=== PATIENT | male | born 1965 | race Caucasian/White ===

== ENCOUNTER 2019-08-18 08:23 | Inpatient (IN) | payer OTHER ==
[~2019-08-18] VITALS: Ht 160 cm; Wt 97.5 kg
[2019-08-18 09:29] LABS: BASOPHIL % 0.6 % (0-2); PLATELET COUNT 199 x10^3mcL (130-400); RED CELL DISTRIBUTION WIDTH 13.6 % (11.5-14.5)
[2019-08-18 09:54] LABS: CALCIUM 9.1 mg/dL (8.5-10.1); CARBON DIOXIDE 27.4 mmol/L (21-32); CHLORIDE SERUM 106 mmol/L (98-107); CREATININE SERUM 0.9 mg/dL (0.7-1.3); GFR1 > 60 mL/min; GLUCOSE SERUM 106 mg/dL (74-106); POTASSIUM SERUM 4.5 mmol/L (3.5-5.1); SODIUM SERUM 142 mmol/L (136-145)
[2019-08-18 09:55] VITALS: BP 138/76
[2019-08-18 09:58] LABS: ALBUMIN 3.9 g/dL (3.4-5.0); ALKALINE PHOSPHATASE 64 U/L (46-116); ALT/SGPT 43 U/L (16-63); AST/SGOT 20 U/L (15-37); BILIRUBIN TOTAL 0.36 mg/dL (0.20-1.00); TOTAL PROTEIN, SERUM 7.4 g/dL (6.4-8.2)
--- NOTE | 2019-08-18 16:33 | NUR ---
P.T. NOTES RECEIVED P.T. EVAL ORDER; HOLD P.T. EVAL, Pt STILL UNAVAILABLE, FF UP TOMORROW.
--- NOTE | 2019-08-18 17:30 | NUR ---
[employer] APPLICATION DEVELOPER AT BEDSIDE.
--- NOTE | 2019-08-18 17:45 | NUR ---
RECEIVED PATIENT VIA GURNEY, S/P RIGHT TOTAL HIP REPLACEMENT. PATIENT A/O X4, DENIES HEADACHE, DIZZINESS. PATIENT DENIES SOB, LUNG SOUNDS CTA, PATIENT ON 2L NC. PULSE PALPABLE X4, NO EDEMA NOTED. PATIENT VOIDS FREELY. PATIENT HAS LIMITED ROM TO RLE, PATIENT AMBULATORY WITH CANE AT BASELINE. INICISION X1 TO RIGHT HIP, COVERED WITH DERMABOND PERINEO & MEPELIX. ABDUCTOR PILLOW IN PLACE. NS IV INFUSING TO LH AT 80ML/HR, IV SITE CDI & PATENT, NO S/S OF INFILTRATION. CALL LIGHT WITHIN REACH, BED IN LOW POOSITION.
[2019-08-18 18:16] VITALS: BP 95/73
--- NOTE | 2019-08-18 18:20 | NUR ---
PATIENT RESTING IN BED, NO ACUTE DISTRESS NOTED. PATIENT DENIES PAIN. FAMILY AT BEDSIDE. DENIES SOB ON 2L NC. POSTERIOR HIP PRECAUTIONS IN PLACE. DRESSING TO RIGHT HIP CDI, ABDUCTOR PILLOW IN PLACE. CALL LIGHT WITHIN REACH, WILL ENDORSE REPORT,
--- NOTE | 2019-08-18 20:06 | NUR ---
Received pt. resting in bed, no signs of distress, no signs of sob, able to make needs known, and able to hold conversation. Family noted to be at bedside upon bedside report from day shift. Pt. a/o x4, M/S, lungs CTA, on 2L via NC, bowelsounds hypoactive LBM on 08/17/2019, voids in urinal, has hip abductor present, limited ROM on RLE, sarthak surgical wound x1 on R hip with dermabond and mepilex. Pt. has L hand IV running NS @ 80 mL/hr. Pt. has no c/o pain at this time, bed set at lowest position, call light placed within reach, will continue to monitor.
--- NOTE | 2019-08-18 22:08 | NUR ---
TYLENOL GIVEN FOR HEADACHE AND TUMS FOR GERD.
[2019-08-18 22:17] VITALS: BP 137/53
--- NOTE | 2019-08-18 22:26 | NUR ---
Pt. requested to stand up for the first time since surgery. Gave pt. a FWW and with other RNCamilla at bedside pt. was able to get up without assistance. Pt. tolerated it well, was able to walk about 5 feet and back. Pt. denies the need to go to the bathroom, but will put a raised seat on toilet in bathroom to help pt. sit in proper manner. Pt. denies any pain, just "feels a little weird" since the surgery and when family at bedside asked how he felt, pt. stated that there wasn't as much pain as prior to surgery. Will continue to monitor pt. and offer more chances to get up throughout shift as tolerated.
--- NOTE | 2019-08-19 00:45 | NUR ---
Pt. c/o of 05/20 pain. Medicated pt. with 2 tabs of [place]ang 5/. Will Continue to monitor.
--- NOTE | 2019-08-19 04:10 | NUR ---
Pt. currently resting in bed, no c/o of pain, able to make needs known. IV ab(x) was given, is tolerating well at the moment. Pt. was able to void earlier when pt. requested to get up and walk to the bathroom. pt. was not able to pass stool, but was able to urinate w/o any problems noted. Will continue to monitor.
[2019-08-19 06:10] VITALS: BP 127/85
[2019-08-19 06:40] LABS: CALCIUM 8.3 mg/dL (8.5-10.1); CARBON DIOXIDE 26.5 mmol/L (21-32); CHLORIDE SERUM 104 mmol/L (98-107); GFR1 > 60 mL/min; GLUCOSE SERUM 154 mg/dL (74-106); POTASSIUM SERUM 4.7 mmol/L (3.5-5.1); SODIUM SERUM 140 mmol/L (136-145)
[2019-08-19 06:42] LABS: BASOPHIL % 0.2 % (0-2); PLATELET COUNT 174 x10^3mcL (130-400); RED CELL DISTRIBUTION WIDTH 14.1 % (11.5-14.5)
--- NOTE | 2019-08-19 06:46 | NUR ---
Pt. currently resting in bed, ambulatory to the bathroom at least 2 times tonight w/o any issue. Pt. has c/o of pain twice tonight, both medicated and controlled with [place] 5/325 x2 q6h. Pt. brother at bedside all night. Call light placed within reach, bed set at lowest position, will continue to monitor.
--- NOTE | 2019-08-19 06:59 | NUR ---
Pt. O2 was off for most of shift, and pt. tolerated it well. no c/o of sob or distress noted. Will continue to monitor pt.
--- NOTE | 2019-08-19 07:06 | NUR ---
Critical lab Results received at 0705 for elevated WBC at 14.3. Will endorse to next shift and continue to monitor.
--- NOTE | 2019-08-19 07:10 | NUR ---
RECEIVED PT FROM WASTE HAND RN. Kiana/INA. MED SURG. DENIES ANY CHEST PAIN/PRESSURE. RESPIRATIONS EQUAL AND UNLABORED ON RA. DENIES SOB. PT STATES PAIN TO SURGICAL INCISION IS TOLERABLE AT THIS TIME, SINCE RECEIVING NORCO THIS AM. PT WALKED TO BATHROOM TWICE LAST NIGHT TOLERATED WELL. ABDUCTOR PILLOW IN PLACE BETWEEN LEGS. IV TO LH PATENT AND INFUSING. NO REDNESS OR SWELLING NOTED. INCISION TO RIGHT HIP, DRESSING CDI. WILL CONTINUE TO MONITOR. CLAL LIGHT IN REACH. BED IN LOWEST POSITION.
--- NOTE | 2019-08-19 08:41 | NUR ---
SPOKE WITH DR. ARANDA REGARDING WBC OF 14.[address] ARANDA ITS EXPECTED IN EARLY POST OP PERIOD. NO NEW ORDERS RECEIVED.
--- NOTE | 2019-08-19 09:37 | NUR ---
PT SITTING UP AT BEDSIDE. NO ACUTE RESP DISTRESS NOTED ON RA. PT STATES PAIN TO HIP IS TOLERABLE AT THIS TIME. IV TO RH FLUSHED WELL. NO REDNESS OR SWELLING NOTED. GIVEN PO MEDS. TOLERATED WELL. PER JIGNA PHYSICAL THERAPIST WILL BE BACK TO EDUCATE PT ON EXERCISES TO DO AT HOME. WILL CONTINUE TO MONITOR. CALL LIGHT IN REACH. BED IN LOWEST POSITION.
[2019-08-19 09:54] VITALS: BP 112/58
[2019-08-19 13:47] VITALS: BP 112/58
--- NOTE | 2019-08-19 14:07 | NUR ---
PT SITTING UP AT BEDSIDE. PT GIVEN DISCHARGE INSTRUCTIONS. PT STATES "I HAVE MY FOLLOW UP APPOINTMENT SET UP WITH DR. ARANDA ALREADY SET UP, I ALREADY HAVE PAIN MEDICATION PRESCRIPTION FILLED AT HOME AND I KNOW WHEN TO TAKE IT, AND I ALSO HAVE MY PHYSICAL THERAPY SET UP." PT STATES "PHYSICAL THERAPIST JIGNA REALLY EDUCATED ME ON EXCERCISES TO DO AT HOME, TO WALK EVERY 2 HOURS AND WHAT PRECAUTIONS TO TAKE." PT ALSO STATES "DR. ARANDA INSTRUCTED ME TO KEEP DRESSING CLEAN AND DRY UNTIL MY FOLLOW UP APPOINTMENT WITH HIM." IV TO LH REMOVED CATHETER INTACT. NO REDNESS OR SWELLING NOTED. ALL QUESTIONS AND CONCERNS ADDRESSED. NO PROBLEMS ENCOUNTERED. PT TAKEN OFF UNIT VIA WHEELCHAIR BY MOOK.
== END 2019-08-19 14:08 | disposition home or self-care (01) | DRG 301 ==
LOC: MU 08:23 → DU 11:30 → MU 17:18
PROVIDERS: ADMIT Orthopaedic Surgery
PROC: 0SR903A Replacement of Right Hip Joint with Ceramic Synthetic Substitute, Uncemented, Open Approach (ICD-10-PCS; principal; 2019-08-18 11:30)
DX: M16.11 Unilateral primary osteoarthritis, right hip (principal); M70.61 Trochanteric bursitis, right hip; M77.8 Other enthesopathies, not elsewhere classified; Z79.899 Other long term (current) drug therapy; Z98.1 Arthrodesis status; Z87.891 Personal history of nicotine dependence; Z88.8 Allergy status to other drugs, medicaments and biological substances
CPT/HCPCS: 97116-GP; 97530-GP; C1713; C1776; G0378; J0690; J1170; J1885; J2175; J2250; J2270; J2405; J2704; J3010; J3490; J7030; J7120